=== PATIENT | female | born 1945 | race Caucasian/White ===

== ENCOUNTER 2018-04-28 11:03 | Emergency (ER) | payer MEDICARE, OTHER ==
[~2018-04-28] VITALS: Ht 157.5 cm; Wt 79.0 kg
[2018-04-28] MEDS ORDERED: METHYLNALTREXONE 12 MG/0.6 ML SQ ONE ×2 (11:24→11:30)
[2018-04-28 11:46] VITALS: BP 150/82
[2018-04-28] MEDS ORDERED: PINK LADY ENEMA 490 ML BOTTLE PR ONE (12:30)
== END 2018-04-28 14:39 | disposition home or self-care (01) ==
LOC: ED 12:49
DX: K56.41 Fecal impaction (principal); Z85.6 Personal history of leukemia
CPT/HCPCS: 96372; 99283; 99284